=== PATIENT | male | born 1990 | race Caucasian/White ===

== ENCOUNTER 2024-10-16 16:46 | Emergency (ER) | payer OTHER, SELFPAY ==
[2024-10-16 17:13] VITALS: PULSE 90; RESP 18; O2SAT 98
[2024-10-16 17:35] VITALS: BP 152/100; PULSE 77; RESP 19; TEMP 36.3; O2SAT 96
--- NOTE | 2024-10-16 17:51 | XR_ITS ---
Examination: Lumbar spine 3 views TECHNIQUE: AP lateral coned lateral lower lumbar spine 3 views. Date and time: October 16, 2024 1802 hours INDICATIONS: Lifting injury to lower back today, lower back pain. FINDINGS: Satisfactory alignment lumbar vertebral bodies. No lumbar fracture. Mild disc narrowing L5-S1. No spondylolisthesis. IMPRESSION: Normal lumbar fracture.
--- NOTE | 2024-10-16 17:51 | EDRME_ITS ---
<Statement entered by Sara Thomson MD - 10/17/24 06:44> As co-signing physician, I was present and available for consult prn. I concur with the plan and care as documented by the midlevel provider. 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 A comprehensive ED assessment and evaluation of the patient, analysis of all test results, and completion of the medical decision making process will be conducted by additional ED providers. Vital signs: Vital Signs Temperature 97.3 F 10/16/24 17:35 Pulse Rate 77 10/16/24 17:35 Respiratory Rate 19 10/16/24 17:35 Blood Pressure 152/100 H 10/16/24 17:35 Pulse Oximetry (%) 96 10/16/24 17:35 Oxygen Delivery Method Room Air 10/16/24 17:35 Vital signs reviewed by provider: Yes
[2024-10-16] MEDS: KETOROLAC INJ 60 MG/2 ML VIAL 30 MG IM (18:27)
--- NOTE | 2024-10-16 19:00 | PD.EDBACK ---
ED Back Injury Pain RME/HPI General Stated Complaint: BACK PAIN Time Seen by Provider: 10/16/24 18:13 Arrival date/time: 10/16/24 16:46 34-year-old male with a past medical history of previous low back strains presents to the ED with a complaint of low back pain after an incident at work. 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 He denies any difficulty walking. He denies any numbness, tingling, or weakness to his lower extremities. He denies any loss of bladder or bowel control. 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 A comprehensive ED assessment and evaluation of the patient, analysis of all test results, and completion of the medical decision making process will be conducted by additional ED providers. Related Data Previous Rx's ?Medication ?Instructions ?Recorded meloxicam 15 mg tablet 15 mg PO QDAY PRN pain #10 tabs 10/16/24 methocarbamol 750 mg tablet 750 mg PO TID PRN Muscle spasm #15 10/16/24 tabs Allergies Allergy/AdvReac Type Severity Reaction Status Date / Time No Known Allergies Allergy Verified 10/16/24 17:12 Review of Systems Review of Systems Systems Reviewed: All systems reviewed, normal except as documented Past Medical History Social History SMOKING STATUS: Never smoker ED Exam Narrative Physical exam: A&O, very pleasant, afebrile and non-toxic appearing 34-year-old male, no acute distress. Lung are clear, RRR. No C-spine, T-spine, or L-spine point tenderness. No sciatic notch tenderness. Equal pedal push/pull, CMS intact distally. Unable to reproduce back pain at this time. Moves all other extremities well. Course Course Course Narrative: Patient was given Toradol 30 mg IM. Lumbar spine x-ray reveals: Satisfactory alignment lumbar vertebral bodies. No lumbar fracture. Mild disc narrowing L5-S1. No spondylolisthesis. Quality Measures none Orders Category Date Time Status XR lumbar spine 2-3V Stat Exams 10/16/24 17:51 Completed Ketorolac Inj [Toradol Inj] Med 10/16/24 17:51 Discontinued 30 mg IM X1 ONE Vital Signs Vital signs: Vital Signs Temperature 97.3 F 10/16/24 17:35 Pulse Rate 77 10/16/24 17:35 Respiratory Rate 19 10/16/24 17:35 Blood Pressure 152/100 H 10/16/24 17:35 Pulse Oximetry (%) 96 10/16/24 17:35 Oxygen Delivery Method Room Air 10/16/24 17:35 Back Pain / Injury MDM Narrative MDM Narrative:: Symptoms, exam and diagnostic studies are consistent with: Lumbar strain Patient was discharged home in stable condition. Patient/family advised to follow-up with their PCP in 24-48 hours. Encouraged to return to the ED for any new or worsening symptoms. Patient data External records reviewed:: None Clinical information provided by:: patient Social determinants that could affect healthcare access:: none Patient has the following chronic illnesses:: Previous history of back strain How is presenting disease/condition affected by chronic disease/condition?: exacerbated by Evaluation data The following diagnostics were reviewed and interpreted by me:: radiology exam(s) Lab and/or radiology exams considered but not ordered:: N/A Interpretation Summary: As noted above Medications / Prescriptions Medications or Prescriptions considered but not ordered:: N/A Medication administrations:: Medication Administration History Discontinued Medications Ketorolac Tromethamine (Ketorolac Inj 60 Mg/2 Ml Vial) 30 mg IM X1 ONE Stop: 10/16/24 17:52 Last Admin: 10/16/24 18:27 Dose: 30 mg Documented By: As noted above Consultations Consultation(s) initiated? (list below): No Diagnosis Differential diagnosis back pain/injury: lumbar radiculopathy, sciatica and strain of lumbar region Most likely diagnosis given after review of the tests above:: Strain of lumbar region Admission Indicated Admission indicated?: not indicated Explain why admission is indicated or not indicated:: Patient is stable for discharge Admission Request Was there a request for admission?: No Admission Attestation Admission request attestation: N/A Disposition Plan Disposition Plan: Discharge Discharge Attestation Discharge Attestation: The patient and all family members were given an opportunity to ask questions and understood the discharge instructions. Discharge instructions specifically effects, indications for sooner follow up or return to the emergency department, and the expected course of current diagnosis. Patient condition: Stable Discharge Plan Plan Patient Disposition: HOME (Self Care) Discharge Disposition comment: Stable and improved Prescriptions/Referrals Prescriptions/Med Rec: New meloxicam 15 mg tablet 15 mg PO QDAY PRN (Reason: pain) Qty: 10 0RF methocarbamol 750 mg tablet 750 mg PO TID PRN (Reason: Muscle spasm) Qty: 15 0RF Referrals: No Primary/Family,Physician [Primary Care Provider] - In 1 week Problem List Clinical Impression: Lumbar strain Patient/Caregiver Discharge Instructions Education Materials: ED Back Sprain/Strain Additional Instructions: Take the medications as needed for your low back pain. Follow-up with your Worker's Compensation clinic as directed by your employer. Return to the ED for any new or worsening symptoms. Print Language: Romanian Stand Alone Forms: Sue Award Info., Patient Portal Info Letter NIYA/KRISTA Supervising Physician NIYA/KRISTA Supervising Physician: Dr Valadez
== END 2024-10-16 20:19 | disposition home or self-care (01) ==
PROVIDERS: Emergency Provider Emergency Medicine
DX: S39.012A Strain of muscle, fascia and tendon of lower back, initial encounter (principal); X50.0XXA Overexertion from strenuous movement or load, initial encounter; Y93.H9 Activity, other involving exterior property and land maintenance, building and construction; Y92.59 Other trade areas as the place of occurrence of the external cause; Y99.0 Civilian activity done for income or pay
CPT/HCPCS: 72100; 96372; 99283; J1885